=== PATIENT | female | born 1950 | race Caucasian/White ===

== ENCOUNTER 2016-08-25 09:47 | Outpatient (CLI) | payer OTHER ==
[2015-01-22 14:07] VITALS: BP 151/83
== END 2016-08-25 09:50 ==
LOC: RAD 09:47
PROVIDERS: ATTEND Family Medicine
DX: Z78.0 Asymptomatic menopausal state (principal)
CPT/HCPCS: 77080

== ENCOUNTER 2017-03-17 09:52 | Outpatient (CLI) | payer OTHER ==
[2015-01-22 14:07] VITALS: BP 151/83
[2017-03-17 10:45] LABS: eGFR (African) > 60; eGFR (Non-African) > 60
== END 2017-03-17 09:53 ==
LOC: LAB 09:52
PROVIDERS: ATTEND Family Medicine
DX: E03.9 Hypothyroidism, unspecified (principal); E78.5 Hyperlipidemia, unspecified
CPT/HCPCS: 36415; 80053; 80061; 84443

== ENCOUNTER 2018-03-03 10:49 | Outpatient (CLI) | payer OTHER ==
[2015-01-22 14:07] VITALS: BP 151/83
[2018-03-03 13:08] LABS: eGFR (Non-African) > 60
== END 2018-03-03 15:33 ==
LOC: LAB 10:49
PROVIDERS: ATTEND Family Medicine
DX: E78.2 Mixed hyperlipidemia (principal); E03.9 Hypothyroidism, unspecified
CPT/HCPCS: 36415; 80053; 80061; 84443

== ENCOUNTER 2018-09-01 10:46 | Outpatient (CLI) | payer OTHER ==
[2015-01-22 14:07] VITALS: BP 151/83
--- NOTE | 2018-09-01 21:44 | Diagnostic Imaging Report ---
LAKEISHA FLOWERS [facility] [id number] [facility].[address] [address] Report Submission Date: Sep 01, 2018 11:05:20 AM CDT Patient Study Name: CIERA ONOFRE Date: Sep 01, 2018 10:49:00 AM CDT Modality Type: DX Gender: F Description: SHOULDER 2 VIEWS OR MORE : 46 Institution: [facility] Physician: LAKEISHA FLOWERS Examination: Plain film right shoulder History: RT SHOULDER, PAIN IN RT SHOULDER X3 MONTHS, NO KNOWN INJURY Comparison exams: None provided Findings: 3 views of the right shoulder demonstrates osteopenia. Articular degenerative changes. No evidence for fracture or dislocation. No soft tissue abnormality Impression: Osteopenia and degenerative changes. No acute cortical abnormality. Electronically signed on Sep 01, 2018 11:05:20 AM CDT by: Veto STEVE
== END 2018-09-01 10:47 ==
LOC: RAD 10:46
PROVIDERS: ATTEND Family Medicine
DX: M85.811 Other specified disorders of bone density and structure, right shoulder (principal); M24.111 Other articular cartilage disorders, right shoulder; G89.29 Other chronic pain; M25.511 Pain in right shoulder
CPT/HCPCS: 73030